=== PATIENT | female | born 1960 | race Caucasian/White ===

== ENCOUNTER → 2017-06-27 | Outpatient (CLI) | payer OTHER ==
[~2017-06-27] MED LIST: ACETAMINOPHEN-H1 TA2 PO; GABAPENTIN 400400 MG PO; LISINOPRIL/HCTZ1 TA3 FT; PROZAC40 MG PO
--- NOTE | 2017-06-27 09:36 | RADIOLOGY REPORT PS360 ---
ANKLE-LT-3 VIEWS HISTORY: Follow-up fracture/ORIF HEALING OF LEFT ANKLE FX ORDERING PHYSICIAN: JV NICHOLE MD PATIENT AGE: 57 years COMPARISON: 05/16/2017 FINDINGS: There is a bone plate over the distal fibula with multiple screws. 2 screws are present within the distal tibia. There remains focal osteopenia along the distal aspect of the tibia. There is good alignment. Fracture lines are not readily apparent. Osteopenia involves the foot. IMPRESSION: 1. Status post ORIF tib-fib fracture with good alignment. 2. Osteopenia of the distal tibia and foot
== END ==
LOC: RAD 08:32
DX: S82.852D Displaced trimalleolar fracture of left lower leg, subsequent encounter for closed fracture with routine healing (principal)

== ENCOUNTER → 2017-07-16 | Outpatient (CLI) | payer OTHER ==
--- NOTE | 2017-07-16 14:43 | RADIOLOGY REPORT PS360 ---
ANKLE-LT-3 VIEWS HISTORY: Follow-up ORIF and fracture FU FX LT ANKLE ORDERING PHYSICIAN: JV NICHOLE MD PATIENT AGE: 57 years COMPARISON: 06/27/2017 FINDINGS: There remains good alignment of the distal fibula and tibia status post ORIF of the distal fibular and posterior tibial fractures with the fracture lines not readily visible. Osteopenia once again noted of the distal tibia and fibula. There is also osteopenia of the foot. IMPRESSION: Good alignment status post ORIF distal tib-fib fracture with osteopenia.
[2017-07-16 19:42] LABS: HEMOGLOBIN 11.7 g/dL (12.2-16.2); LYMPH # 4.1 K/mm3 (0.7-4.5); LYMPH % 27.6 % (10-50.0)
== END ==
LOC: RAD 14:15 → LAB 14:15
PROVIDERS: Orthopaedic Surgery
DX: S82.852D Displaced trimalleolar fracture of left lower leg, subsequent encounter for closed fracture with routine healing (principal); B99.9 Unspecified infectious disease

== ENCOUNTER → 2017-07-18 | Outpatient (CLI) | payer OTHER ==
[2017-07-18 09:34] LABS: BUN 13 mg/dL (7-18); GFR (ESTIMATED) 74 ML/MIN (59-)
[2017-07-18 11:39] LABS: HEMOGLOBIN 12.7 g/dL (12.2-16.2); LYMPH # 3.1 K/mm3 (0.7-4.5); LYMPH % 33.5 % (10-50.0)
--- NOTE | 2017-07-19 05:30 | RADIOLOGY REPORT PS360 ---
[id number]/CONTRAST CLINICAL INDICATION: ANKLE FRACTURE , POST OP INFECTION ORDERING PHYSICIAN: JV NICHOLE MD PATIENT AGE: 57 years COMPARISON: Multiple previous radiographs and old CT scan of 03/15/2017 TECHNIQUE: Axial images obtained without and with contrast with multiplanar reformats FINDINGS: There is diffuse osteopenia of the distal tib-fib and left as noted on previous radiographs. This somewhat makes interpretation difficult in regards to evaluation for bony erosion. There has been prior ORIF of a distal tib-fib fracture. There are 2 screws present in distal tibia directed from posterior to anterior. The anterior aspect of the most medial of these 2 screws slightly extend through the anterior tibial cortex by approximately 3 mm while the lateral screw extends just to the anterior tibial cortex. There is no evidence of bony erosive change around the screws. The screws appear extracapsular There is a bone plate with multiple screws along the distal fibula laterally. No evidence of bony erosive change around the screws. There is a small ankle joint effusion along the entry aspect of the ankle joint extending along the superior aspect of the talus with very minimal enhancement of the joint capsule. No gas is evident within this effusion and no obvious debris is apparent. The ankle joint is preserved with no obvious erosive change at the distal tibia or talar dome. No intra-articular gas The fracture lines of the posterior distal tibia and distal fibula are only barely perceptible consistent with healing of the fracture. There is good alignment. IMPRESSION: 1. Prior ORIF with healing of distal tibia and fibula fractures as described above. 2. No convincing evidence of osteomyelitis. 2. Small ankle joint effusion anteriorly. No underlying bony destruction or significant capsular enhancement or intra-articular gas or debris that would indicate a septic joint 3. Diffuse osteopenia.
== END ==
LOC: RAD 08:44
PROVIDERS: Orthopaedic Surgery
DX: M25.572 Pain in left ankle and joints of left foot (principal); Z09 Encounter for follow-up examination after completed treatment for conditions other than malignant neoplasm; B99.9 Unspecified infectious disease
CPT/HCPCS: Q9967